=== PATIENT | female | born 1990 | race African-American/Black ===

== ENCOUNTER 2022-05-23 07:12 | Day surgery (SDC) | payer OTHER ==
[2022-05-19 16:10] VITALS: BMI 33.5
[2022-05-23] MEDS ORDERED: FENTANYL CITRATE/PF 50 MCG/ML VIAL ONE (10:13)
[2022-05-23] MEDS ORDERED: BUPIVACAINE LIPOSOME/PF (EXPAREL) 266 MG/20 ML VIAL ONE (10:13)
[2022-05-23] MEDS ORDERED: MIDAZOLAM HCL 2 MG/2 ML SINGLE DOSE VIAL ONE (10:13)
[2022-05-23] MEDS ORDERED: BUPIVACAINE HCL/PF 0.5% (5MG/ML) 10 ML VIAL ONE ×2 (10:14→11:17)
[2022-05-23] MEDS ORDERED: PROPOFOL 40 ML ONE (11:50)
[2022-05-23] MEDS ORDERED: HYDROmorphone HCL/PF 1 MG/ML VIAL ONE (11:55)
[2022-05-23] MEDS ORDERED: ONDANSETRON 4 MG/2 ML VIAL ONE (11:58)
[2022-05-23] MEDS ORDERED: DEXAMETHASONE SOD PHOSPHATE 4 MG/1 ML VIAL ONE (11:58)
[2022-05-23] MEDS ORDERED: ceFAZolin SODIUM 1 GM VIAL ONE (11:58)
[2022-05-23] MEDS ORDERED: ACETAMINOPHEN 1000 MG/100 ML BAG IVPB ONE (14:59)
[2022-05-23] MEDS ORDERED: ONDANSETRON 4 MG/2 ML VIAL IVPUSH PRN (14:59)
[2022-05-23] MEDS ORDERED: oxyCODONE HCL 5 MG TABLET PO PRN (14:59)
[2022-05-23] MEDS ORDERED: LACTATED RINGERS SOLUTION 1,000 ML IV SCH (15:00)
[2022-05-23 15:49] VITALS: RESP 18
[2022-05-23 15:52] VITALS: PULSE 70; TEMP 97.8
[2022-05-23 17:09] VITALS: BP 110/54
== END 2022-05-23 16:45 | disposition home or self-care (01) ==
LOC: FASU 07:12
PROVIDERS: ATTEND Orthopaedic Surgery Sports Medicine
PROC: 0MRP4KZ Replacement of Left Knee Bursa and Ligament with Nonautologous Tissue Substitute, Percutaneous Endoscopic Approach (ICD-10-PCS; principal; 2022-05-23 12:19)
PROC: 0SBD4ZZ Excision of Left Knee Joint, Percutaneous Endoscopic Approach (ICD-10-PCS; 2022-05-23 12:19)
DX: S83.512A Sprain of anterior cruciate ligament of left knee, initial encounter (principal); S83.242A Other tear of medial meniscus, current injury, left knee, initial encounter; M65.9 Synovitis and tenosynovitis, unspecified; X58.XXXA Exposure to other specified factors, initial encounter; Y93.9 Activity, unspecified; Y92.9 Unspecified place or not applicable
CPT/HCPCS: 29881; 29888; C1713; 73560-TC-LT-FY; 84703; 94760

== ENCOUNTER 2022-07-08 05:16 | Day surgery (SDC) | payer OTHER ==
[2022-07-07 13:26] VITALS: BMI 33.5
[2022-07-08 12:13] VITALS: BP 92/65; RESP 18
[2022-07-08 15:59] VITALS: TEMP 97.7
[2022-07-08 16:04] VITALS: PULSE 53
== END 2022-07-08 12:05 | disposition home or self-care (01) ==
LOC: JASU-ENDO 05:16
PROVIDERS: ATTEND Student in an Organized Health Care Education/Training Program
PROC: 0DB78ZX Excision of Stomach, Pylorus, Via Natural or Artificial Opening Endoscopic, Diagnostic (ICD-10-PCS; 2022-07-08)
PROC: 0DB68ZX Excision of Stomach, Via Natural or Artificial Opening Endoscopic, Diagnostic (ICD-10-PCS; principal; 2022-07-08 09:00)
DX: K29.70 Gastritis, unspecified, without bleeding (principal); B96.81 Helicobacter pylori [H. pylori] as the cause of diseases classified elsewhere
CPT/HCPCS: 81025; 88305-TC; 88341-TC; 88342-TC

== ENCOUNTER 2023-01-08 13:28 | Emergency (ER) | payer OTHER ==
[2023-01-08 13:34] VITALS: BP 91/51; PULSE 80; RESP 18; TEMP 97.6; BMI 33.6
[2023-01-08] MEDS ORDERED: KETOROLAC TROMETHAMINE 15 MG/ML VIAL IVPUSH ONE (14:00)
[2023-01-08] MEDS ORDERED: SODIUM CHLORIDE 0.9% 500 ML INFUS.BAG IV ONE (14:01)
[2023-01-08] MEDS ORDERED: ONDANSETRON 4 MG/2 ML VIAL IVPUSH ONE (14:01)
[2023-01-08] MEDS ORDERED: KETOROLAC TROMETHAMINE 15 MG/ML VIAL ONE (14:32)
[2023-01-08] MEDS ORDERED: ONDANSETRON 4 MG/2 ML VIAL ONE (14:32)
[2023-01-08 14:58] LABS: BASO % 0.3 % (0-2.0); EOS % 1.2 % (0-4.5); HEMATOCRIT 35.2 % (32.4-45.2); HEMOGLOBIN 11.5 GM/dL (10.7-15.3); LYMPH % 16.4 % (8-40); MCH 25.4 pg (25.7-33.7); MCHC 32.8 g/dl (32.0-36.0); MEAN CELL VOLUME 77.4 fl (80-96); MEAN PLT VOLUME 10.3 fl (7.5-11.1); MONO % 6.9 % (3.8-10.2); NEUT % 75.2 % (42.8-82.8); PLATELET COUNT 62 10^3/uL (134-434); RBC 4.54 M/mm3 (3.60-5.2); RDW 14.7 % (11.6-15.6); WHITE BLOOD COUNT 8.3 K/mm3 (4.0-10.0)
[2023-01-08 14:59] LABS: EPI CELLS >36 /uL (0-25.1); HYALINE CASTS 12 /uL (0-3.1); PH,URINE 8.5 (5.0-8.0); URINE APPEARANCE TURBID; URINE BACTERIA >9,000 /uL (0-1359); URINE BILIRUBIN NEGATIVE (NEGATIVE); URINE COLOR YELLOW; URINE GLUCOSE (UA) NEGATIVE (NEGATIVE); URINE KETONE NEGATIVE (NEGATIVE); URINE LEUK ESTERASE 3+ (NEGATIVE); URINE NITRITE NEGATIVE (NEGATIVE); URINE PROTEIN 3+ (NEGATIVE); URINE WBC 15641 /uL (0-25.8)
[2023-01-08] MEDS ORDERED: CEFTRIAXONE 1 GM in DEXTROSE 5%-WATER - 100 ML IVPB ONE (15:04)
[2023-01-08] MEDS ORDERED: cefTRIAXone SODIUM 1 GM VIAL ONE (15:06)
[2023-01-08 15:18] LABS: URINE RBC 755.8 /uL (0-23.9)
[2023-01-08 15:19] LABS: YEAST NONE SEEN (NEGATIVE)
[2023-01-08 15:30] LABS: POTASSIUM 4.2 mmol/L (3.5-5.1)
[2023-01-08 15:32] LABS: ALBUMIN 3.6 g/dl (3.4-5.0); BLOOD UREA NITROGEN 8.7 mg/dL (7-18); CALCIUM 9.5 mg/dL (8.5-10.1)
[2023-01-08 15:36] LABS: CREATININE 0.8 mg/dL (0.55-1.3)
[2023-01-08 15:37] LABS: BILIRUBIN,TOTAL 0.5 mg/dL (0.2-1); TOT PROT 7.2 g/dl (6.4-8.2)
== END 2023-01-08 18:36 | disposition home or self-care (01) ==
LOC: JER 13:28
PROC: 3E03329 Introduction of Other Anti-infective into Peripheral Vein, Percutaneous Approach (ICD-10-PCS; principal; 2023-01-08)
PROC: 3E033GC Introduction of Other Therapeutic Substance into Peripheral Vein, Percutaneous Approach (ICD-10-PCS; 2023-01-08)
PROC: 3E033GC Introduction of Other Therapeutic Substance into Peripheral Vein, Percutaneous Approach (ICD-10-PCS; 2023-01-08)
DX: N10 Acute pyelonephritis (principal); N39.0 Urinary tract infection, site not specified
CPT/HCPCS: 36415; 74177-TC; 80053; 81003; 83690; 84703; 85025; 87086; 87186; 99285-25; Q9967